=== PATIENT | female | born 1995 | race African-American/Black ===

== ENCOUNTER 2023-12-30 15:57 | Emergency (ER) | payer SELFPAY ==
[~2023-12-30] VITALS: Ht 167.6 cm; Wt 94.3 kg
[2023-12-30 16:04] VITALS: O2SAT 100
[2023-12-30 16:12] VITALS: BP 135/98; PULSE 74; RESP 16; TEMP 98.2; O2SAT 98
== END 2023-12-30 21:00 | disposition left against medical advice (07) ==
LOC: ER 15:57
DX: M79.89 Other specified soft tissue disorders (principal); Z53.21 Procedure and treatment not carried out due to patient leaving prior to being seen by health care provider